=== PATIENT | female | born 2000 | race African-American/Black ===

== ENCOUNTER 2022-04-02 16:13 | Emergency (ER) | payer OTHER ==
[~2022-04-02] VITALS: Ht 180.3 cm; Wt 96.4 kg
[2022-04-02] MEDS ORDERED: LIDOCAINE 2%/EPI 1:200,000/PF 20 ML VIAL ID ONE (17:15)
[2022-04-02] MEDS ORDERED: PERTUSS(ACELL),DIPH,TET VAC/PF 0.5 ML SYRINGE IM. ONE (17:45)
[2022-04-02] MEDS ORDERED: ACETAMINOPHEN 325 MG TABLET ONE (19:22)
[2022-04-02] MEDS ORDERED: ACETAMINOPHEN 325 MG TABLET PO ONE (19:30)
[2022-04-02 19:50] VITALS: BP 116/64
== END 2022-04-02 20:34 ==
LOC: EMS 16:21
DX: S71.112A Laceration without foreign body, left thigh, initial encounter (principal); X58.XXXA Exposure to other specified factors, initial encounter; Y93.39 Activity, other involving climbing, rappelling and jumping off; Y92.89 Other specified places as the place of occurrence of the external cause; Y99.8 Other external cause status
CPT/HCPCS: 12002; 90471; 90715; 99283